=== PATIENT | male | born 1955 | race Hispanic/Latino ===

== ENCOUNTER 2021-06-14 15:41 | Inpatient (IN) | payer SELFPAY ==
[~2021-06-14 15:41] MED LIST: Iopamidol-370 76% 500 ML 1 ML ONE
[2021-06-14 16:13] LABS: #Lymphocytes 0.7 thou/uL (1.20-3.40); #Monocytes 0.3 thou/uL (0.11-0.59); #Neutrophils 7.9 thou/uL (1.40-6.50); %Basophils 0.1 % (0.0-1.0); %Eosinophils 0.2 % (0.0-10.0); %Lymphocytes 7.5 % (21.0-51.0); %Monocytes 3.6 % (0.0-10.0); %Neutrophils 88.6 % (42.0-75.0); Hemoglobin 13.6 g/dL (14.0-18.0); Mean Corpuscular HGB CONC 35.7 g/dL (32.0-36.0); Mean Corpuscular Volume 97.9 fL (78.0-98.0); Mean Platelet Volume 7.8 fL (7.4-10.4); Platelet Count 189 thou/uL (130-400); RBC Distribution Width 11.2 % (11.5-14.5)
[2021-06-14 16:27] LABS: ALT (SGPT) 73 U/L (8-55); AST (SGOT) 37 U/L (5-34); Albumin 3.9 g/dL (3.4-4.8); Alkaline Phosphatase 51 U/L (40-110); Anion Gap 11 mmol/L (10-20); BUN (Urea Nitrogen) 16 mg/dL (8.4-25.7); Bilirubin, Total 0.6 mg/dL (0.2-1.2); Calc. Creatinine Clearance 0 mL/min (70-130); Calcium 8.9 mg/dL (7.8-10.44); Carbon Dioxide 22 mmol/L (23-31); Chloride 107 mmol/L (98-107); Digoxin Less than 0.15 ng/mL (0.8-2.0); Globulin 2.8 g/dL (2.4-3.5); Glucose 153 mg/dL (80-115); Lipase 33 U/L (8-78); Potassium 4.1 mmol/L (3.5-5.1); Protein, Total 6.7 g/dL (5.8-8.1); Sodium 136 mmol/L (136-145)
[2021-06-14 16:42] LABS: INR-International Normal Ratio 1.1; PTT 29.7 sec (22.9-36.1); Prothrombin Time 14.4 sec (12.0-14.7)
[2021-06-14] MEDS ORDERED: Ondansetron ODT 4 MG TAB PO PRN (18:12)
[2021-06-14] MEDS ORDERED: Acetaminophen 325 MG TAB PO PRN (18:12)
[2021-06-14] MEDS ORDERED: Ondansetron PF 4 MG/2 ML Vial IVP PRN (18:12)
[2021-06-14] MEDS ORDERED: Acetaminophen 650 MG Suppository PR PRN (18:12)
[2021-06-14] MEDS ORDERED: hydrALAZINE 20 MG/ML VIAL SLOW IVP PRN (18:16)
[2021-06-14 19:08] LABS: Hemoglobin A1c 5.7 % (4.0-6.0)
[2021-06-14 19:24] VITALS: BMI 29.2
[2021-06-14] MEDS: Sodium Chloride 0.9% 1,000 ML IV SCH (21:47)
[2021-06-15] MEDS: Atorvastatin Calcium 40 MG TAB PO SCH ×2 (00:01→21:07)
[2021-06-15 06:20] LABS: #Lymphocytes 1.2 thou/uL (1.20-3.40); #Monocytes 0.5 thou/uL (0.11-0.59); #Neutrophils 5.3 thou/uL (1.40-6.50); %Basophils 0.4 % (0.0-1.0); %Eosinophils 0.7 % (0.0-10.0); %Lymphocytes 17.2 % (21.0-51.0); %Monocytes 7.3 % (0.0-10.0); %Neutrophils 74.4 % (42.0-75.0); Hemoglobin 13.5 g/dL (14.0-18.0); Mean Corpuscular HGB CONC 35.4 g/dL (32.0-36.0); Mean Corpuscular Hemoglobin 35.1 pg (27.0-31.0); Mean Platelet Volume 7.8 fL (7.4-10.4); Platelet Count 171 thou/uL (130-400); RBC Distribution Width 11.6 % (11.5-14.5); Red Blood Cell (RBC) Count 3.86 mill/uL (4.70-6.10); White Blood Cell (WBC) Count 7.2 thou/uL (4.8-10.8)
[2021-06-15 06:40] LABS: Anion Gap 11 mmol/L (10-20); BUN (Urea Nitrogen) 14 mg/dL (8.4-25.7); Calc. Creatinine Clearance 116 mL/min (70-130); Calcium 8.7 mg/dL (7.8-10.44); Carbon Dioxide 25 mmol/L (23-31); Cardiac Risk 5.4 (Less than 4.5); Chloride 106 mmol/L (98-107); Cholesterol 204 mg/dl (< 200 Desired); Glucose 118 mg/dL (80-115); HDL Cholesterol 38 mg/dL (>60 Neg Risk); LDL Cholesterol, Calculated 133 mg/dL; Potassium 3.7 mmol/L (3.5-5.1); Sodium 138 mmol/L (136-145); Triglycerides 164 mg/dL (Less than 150)
[2021-06-15] MEDS: Aspirin 81 mg Enteric Coated Tablet PO SCH (08:14)
[2021-06-15] MEDS: Sodium Chloride 0.9% 1,000 ML IV SCH (08:14)
[2021-06-15] MEDS ORDERED: FLU VACC QS2021-22(65YR UP)/PF 240 MCG/0.7 ML SYRINGE IM ONE (12:00)
[2021-06-15 12:58] LABS: Bacteria/HPF None Seen HPF (None Seen); Bilirubin Negative (Negative); Blood, Urine Negative (Negative); Clarity Clear (Clear); Glucose, Urine (Dipstick) Normal (Negative); Ketone, Urine Negative (Negative); Leukocyte Negative Leu/uL (Negative); Nitrite Negative (Negative); Protein, Urine (Dipstick) Negative (Neg-Trace); RBC/HPF None Seen HPF (0-3); Specific Gravity, Urine 1.015 (1.002-1.036); Squamous Epithelial None Seen HPF (0-3); WBC/HPF 0-3 HPF (0-3); pH, Urine 6.5 (5.0-9.0)
[2021-06-15 13:03] LABS: Urine Culture Reflex No No
[2021-06-15 16:45] LABS: SARS-CoV-2 PCR by NAA Not Detected (NotDetected)
[2021-06-16 07:27] VITALS: TEMP 98.1
[2021-06-16] MEDS ORDERED: Lisinopril 10 MG TAB PO SCH (09:00)
[2021-06-16] MEDS ORDERED: Clopidogrel Bisulfate 75 MG TAB PO SCH (09:00)
[2021-06-16] MEDS: Aspirin 81 mg Enteric Coated Tablet PO SCH (09:17)
[2021-06-16 11:21] VITALS: BP 160/87
== END 2021-06-16 12:10 | disposition home or self-care (01) | DRG 65 ==
LOC: ERS 15:41 → 3SE 17:53 → OBSVTOIN 06-15 16:56
PROVIDERS: ADMIT Internal Medicine; ATTEND Internal Medicine
DX: I63.9 Cerebral infarction, unspecified (principal); G81.91 Hemiplegia, unspecified affecting right dominant side; I10 Essential (primary) hypertension; E78.5 Hyperlipidemia, unspecified; R73.9 Hyperglycemia, unspecified; R47.1 Dysarthria and anarthria; R29.810 Facial weakness; H55.00 Unspecified nystagmus
CPT/HCPCS: 36415; 70450; 70496; 70498; 71045; 80048; 80053; 80061; 80162; 81001; 83036; 83690; 84484; 85025; 85610; 85730; 90471; 90662; 90732; 93005; 93306; G0008; G0009; G0378; J7050; Q9967; U0003; U0005